=== PATIENT | male | born 1990 | race African-American/Black ===

== ENCOUNTER 2016-11-13 22:25 | Emergency (ER) | payer OTHER ==
[2016-11-13] MEDS ORDERED: Tetan/Diph/Pertus SYR(Tdap)* 0.5 ML SYR(BOOSTRIX) use SYR IM ONE (23:11)
[2016-11-14] MEDS ORDERED: DOXYcycline CAP(*) 100 MG PO ONE (00:04)
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
[2016-11-14 01:21] VITALS: BP 148/74
== END 2016-11-14 01:21 | disposition home or self-care (01) ==
LOC: ED 22:25
DX: S01.411A Laceration without foreign body of right cheek and temporomandibular area, initial encounter (principal); X99.9XXA Assault by unspecified sharp object, initial encounter; Y92.149 Unspecified place in prison as the place of occurrence of the external cause; F17.210 Nicotine dependence, cigarettes, uncomplicated; Z23 Encounter for immunization
CPT/HCPCS: 12014; 90471; 90715; 99282; A9270-GY